=== PATIENT | female | born 1965 | race Caucasian/White ===

== ENCOUNTER 2019-02-09 08:20 | Day surgery (SDC) | payer OTHER ==
[2019-02-01 13:11] VITALS: BMI 34.0
[2019-02-09] MEDS ORDERED: PROPOFOL 20 ML ONE ×2 (09:35)
[2019-02-09 10:55] VITALS: BP 104/65; PULSE 75; TEMP 97.8
== END 2019-02-09 10:30 | disposition home or self-care (01) ==
LOC: FASU-ENDO 08:20
PROVIDERS: ATTEND Internal Medicine Gastroenterology
PROC: 0DJD8ZZ Inspection of Lower Intestinal Tract, Via Natural or Artificial Opening Endoscopic (ICD-10-PCS; principal; 2019-02-09 09:44)
DX: Z12.11 Encounter for screening for malignant neoplasm of colon (principal); Z83.71 Family history of colonic polyps